=== PATIENT | male | born 1975 | race Caucasian/White ===

== ENCOUNTER 2019-05-01 15:45 | Emergency (ER) | payer SELFPAY ==
[~2019-05-01] VITALS: Ht 165.1 cm; Wt 72.6 kg
[2019-05-01 15:58] VITALS: BP 129/84
--- NOTE | 2019-05-01 16:05 | NUR ---
[facility]IB FAMILY C/O LEFT HAND PAIN/SWELLING WITH INTERMITTENT NUMBNESS X 3 WEEKS. PAIN RADIATES TO LEFT ELBOW. DENIES RECENT TRAUMA/INJURY. PATIENT STATES PAIN OF 10/10 AT THIS TIME;PATIENT POSITIONED FOR COMFORT; HOB ELEVATED; BEDRAILS UP X1; BED DOWN. ER MD MADE AWARE OF PT STATUS.
--- NOTE | 2019-05-01 16:09 | NUR ---
Patient being evaluated by DR VELÁSQUEZ at bedside.
[2019-05-01] MEDS ORDERED: IBUPROFEN 400 MG TAB PO ONE (16:15)
--- NOTE | 2019-05-01 16:20 | NUR ---
X-ray at bedside
[2019-05-01 16:40] VITALS: BP 122/77
--- NOTE | 2019-05-01 16:40 | NUR ---
Patient discharged with v/s stable. Written and verbal after care instructions given and explained. Patient alert, oriented and verbalized understanding of instructions. Ambulatory with steady gait. All questions addressed prior to discharge. ID band removed. Patient advised to follow up with PMD. Rx of NAPROXYN given. Patient educated on indication of medication including possible reaction and side effects. Opportunity to ask questions provided and answered.
== END 2019-05-01 16:40 | disposition home or self-care (01) ==
LOC: MED 15:45
DX: M65.4 Radial styloid tenosynovitis [de Quervain] (principal); R03.0 Elevated blood-pressure reading, without diagnosis of hypertension
CPT/HCPCS: 29125; 73110; 99283; Q0092